=== PATIENT | male | born 2000 | race Native Hawaiian/Other Pacific Islander ===

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

== ENCOUNTER 2022-06-02 15:59 | Emergency (ER) | payer OTHER ==
[~2022-06-02] VITALS: Ht 180.3 cm; Wt 77.1 kg
[2022-06-02 15:59] VITALS: BP 138/77; TEMP 98.1
== END 2022-06-02 17:28 | disposition left against medical advice (07) ==
LOC: ED 15:59
DX: F41.8 Other specified anxiety disorders (principal); Z53.29 Procedure and treatment not carried out because of patient's decision for other reasons
CPT/HCPCS: 99283

== ENCOUNTER 2022-06-06 10:58 | Emergency (ER) | payer OTHER ==
[~2022-06-06] VITALS: Ht 180.3 cm; Wt 77.1 kg
[2022-06-06 11:00] VITALS: TEMP 97.4
[2022-06-06 11:31] LABS: PLATELET COUNT 293 K/uL (142-355)
[2022-06-06 11:39] LABS: POTASSIUM 3.7 mmol/L (3.6-5.2)
[2022-06-06 12:40] VITALS: BP 122/80
== END 2022-06-06 12:44 | disposition home or self-care (01) ==
LOC: ED 10:58
PROVIDERS: Emergency Medicine Emergency Medical Services
DX: R31.9 Hematuria, unspecified (principal); R55 Syncope and collapse; W01.198A Fall on same level from slipping, tripping and stumbling with subsequent striking against other object, initial encounter; Y92.89 Other specified places as the place of occurrence of the external cause
CPT/HCPCS: 80048; 80307; 81000; 85027; 87490; 87590; 93005; 99283

== ENCOUNTER 2022-11-07 15:28 | Outpatient (CLI) | payer OTHER | END 2022-11-07 19:34 | disposition home or self-care (01) | LOC: LABW 15:28 | PROVIDERS: ATTEND Nurse Practitioner Family | DX: R19.7 Diarrhea, unspecified (principal) | CPT/HCPCS: 87015; 87045; 87328; 87329; 87338; 87899 ==

== ENCOUNTER 2023-04-02 18:19 | Emergency (ER) | payer OTHER ==
[~2023-04-02] VITALS: Ht 179.1 cm; Wt 77.1 kg
[2023-04-02 18:25] VITALS: TEMP 98.3
[2023-04-02 19:01] LABS: PLATELET COUNT 244 K/uL (142-355)
[2023-04-02 19:10] VITALS: BP 107/62
[2023-04-02 19:10] LABS: POTASSIUM 3.7 mmol/L (3.6-5.2)
== END 2023-04-02 21:43 | disposition home or self-care (01) ==
LOC: ED 18:19
PROVIDERS: Family Medicine
DX: R51.9 Headache, unspecified (principal); R11.2 Nausea with vomiting, unspecified
CPT/HCPCS: 36415; 80053; 81002; 85027; 93005; 96365; 96375; 99284; J1885; J2060; J2550